=== PATIENT | female | born 1960 | race Caucasian/White ===

== ENCOUNTER 2016-10-21 15:09 | Emergency (ER) | payer OTHER, BC ==
[~2016-10-21] VITALS: Ht 157.5 cm; Wt 64.9 kg
[2016-10-21 15:14] VITALS: BP 132/82
[2016-10-21] MEDS ORDERED: [UNRECOGNIZED DRUG - CODE] PO (16:04)
== END 2016-10-21 17:10 | disposition home or self-care (01) ==
LOC: ED 17:01
DX: S16.1XXA Strain of muscle, fascia and tendon at neck level, initial encounter (principal); S30.0XXA Contusion of lower back and pelvis, initial encounter; V03.00XA Pedestrian on foot injured in collision with car, pick-up truck or van in nontraffic accident, initial encounter; Y93.89 Activity, other specified; Y99.8 Other external cause status; Y92.488 Other paved roadways as the place of occurrence of the external cause
CPT/HCPCS: 70450; 72125; 72220; 99284